=== PATIENT | male | born 1970 | race Caucasian/White ===

== ENCOUNTER 2017-12-29 20:08 | Emergency (ER) | payer BC ==
[~2017-12-29] VITALS: Ht 170.2 cm; Wt 90.7 kg
[2017-12-29 20:08] VITALS: BP_SYST 139
[2017-12-29] MEDS ORDERED: LIDOCAINE 1% 10 MG/ML, 20 ML MDV INJ ONE (20:30)
[2017-12-29] MEDS ORDERED: HYDROcodone/ACETAMIN 7.5-325 MG TAB PO ONE (20:30)
[2017-12-29] MEDS ORDERED: BACITRACIN 1 GM OINT TP ONE (20:30)
[2017-12-29 21:41] VITALS: BP_SYST 137
== END 2017-12-29 21:41 | disposition home or self-care (01) ==
LOC: SED 20:08
DX: S61.012A Laceration without foreign body of left thumb without damage to nail, initial encounter (principal); E11.9 Type 2 diabetes mellitus without complications; R03.0 Elevated blood-pressure reading, without diagnosis of hypertension; W26.0XXA Contact with knife, initial encounter; Y93.89 Activity, other specified; Y92.89 Other specified places as the place of occurrence of the external cause; Y99.2 Volunteer activity
CPT/HCPCS: 12001; 99283; J2001

== ENCOUNTER 2021-06-13 17:44 | Emergency (ER) | payer BC, OTHER ==
[~2021-06-13] VITALS: Ht 170.2 cm; Wt 81.6 kg
--- NOTE | 2021-06-13 18:00 | NUR ---
Patient to ER bed 7 to gown for evaluation. Side rails up. Report given to REYNALDO ZAMBRANO.
[2021-06-13 18:03] VITALS: BP_SYST 117
--- NOTE | 2021-06-13 18:04 | NUR ---
DR BRYANT AT BEDSIDE
[2021-06-13] MEDS ORDERED: IBUP-1971 PO (18:34)
[2021-06-13] MEDS ORDERED: SOM350 PO (18:34)
[2021-06-13 18:45] VITALS: BP_SYST 137
--- NOTE | 2021-06-13 18:46 | NUR ---
Patient given written and verbal discharge instructions and verbalizes understanding. ELIZABETH BRYANT MD discussed with patient the results and treatment provided. Patient in stable condition. ID arm band removed. Rx OF MOTRIN AND SOMA given. Patient educated on pain management and to follow up with PMD. Pain Scale 4. Opportunity for questions provided and answered. Medication side effect fact sheet provided.
== END 2021-06-13 18:45 | disposition home or self-care (01) ==
LOC: SED 17:44
DX: S13.4XXA Sprain of ligaments of cervical spine, initial encounter (principal); S33.5XXA Sprain of ligaments of lumbar spine, initial encounter; E11.9 Type 2 diabetes mellitus without complications; Z79.899 Other long term (current) drug therapy; V49.49XA Driver injured in collision with other motor vehicles in traffic accident, initial encounter; Y93.89 Activity, other specified; Y92.89 Other specified places as the place of occurrence of the external cause; Y99.8 Other external cause status
CPT/HCPCS: 72040-TC; 72100-TC; 99284